=== PATIENT | female | born 1940 | race Caucasian/White ===

== ENCOUNTER 2024-08-23 17:41 | Emergency (ER) | payer MEDICARE, OTHER ==
[~2024-08-23] VITALS: Ht 154.9 cm; Wt 56.7 kg
[2024-08-23 18:50] LABS: BASOPHILS 1.1 % (0-2); EOSINOPHILS 2.1 % (0-6); HEMATOCRIT 33.8 % (35.0-50.0); HEMOGLOBIN 11.5 g/dL (12.0-18.0); LYMPHOCYTES 15.4 % (24-44); MCH 30.2 (27-36); MCHC 33.9 g/dl (30-36); MONOCYTES 8.5 % (0-12); NEUTROPHILS 72.9 % (39-80); PLATELET COUNT 188 K/uL (140-440); RBC 3.79 M/ul (4.3-5.7); RDW 14.4 (10.5-15.0)
[2024-08-23] MEDS ORDERED: MIRTAZAPINE15 MG PO (18:57)
[2024-08-23] MEDS ORDERED: FLUDROCORTISON0.1 MG PO (18:57)
[2024-08-23] MEDS ORDERED: CARBIDOPA-LEVO1 EAC5 PO (18:57)
[2024-08-23 18:59] LABS: BILIRUBIN, URINE NEGATIVE (negative); BLOOD/HGB, URINE NEGATIVE (Negative); KETONE, URINE NEGATIVE (Negative); LEUK ESTERASE, URINE NEGATIVE (negative); NITRITE, URINE NEGATIVE (negative)
[2024-08-23 19:05] LABS: ALBUMIN 3.2 g/dL (3.4-5.0); ALBUMIN/GLOBULIN RATIO 1.03 (1.1-2.4); ANION GAP 10.4 (7-21); BILIRUBIN, TOTAL 0.5 mg/dL (0.2-1.0); BUN/CREATININE RATIO 10.97 (6.0-28.6); CALCIUM 8.8 mg/dL (8.5-10.1); CREATININE, SERUM 0.82 mg/dL (0.55-1.02); POTASSIUM 3.4 mmol/L (3.5-5.1); PROTEIN, TOTAL 6.3 g/dL (6.4-8.2)
[2024-08-23 19:06] LABS: INFLUENZA A AG NEGATIVE (NEGATIVE)
[2024-08-23 19:07] LABS: CORONAVIRUS COVID-19 AG NEGATIVE (NEGATIVE); INFLUENZA B AG NEGATIVE (NEGATIVE)
[2024-08-23 19:25] VITALS: BP 126/51
--- NOTE | 2024-08-24 22:39 | EKG ---
[facility] [address] [place] [address] Signed Normal sinus rhythm Nonspecific ST abnormality Abnormal ECG No previous ECGs available Confirmed by Quintin Cantrell MD () on 08/24/2024 10:38:52 PM Electronically Signed By: QUINTIN CANTRELL MD 08/24/242238 PATIENT NAME: DEEPALI JONES Electrocardiogram DATE OF : 42 PHYSICIAN: QUINTIN CANTRELL MD REPORT #: [id number] REPORT IS CONFIDENTIAL AND NOT TO BE RELEASED WITHOUT AUTHORIZATION
== END 2024-08-23 19:25 | disposition home or self-care (01) ==
LOC: ED 17:41
PROVIDERS: Emergency Medicine
DX: R53.1 Weakness (principal)
CPT/HCPCS: 36415; 80053; 81003; 84484; 85025; 93005; 93010; 99285